=== PATIENT | female | born 1985 | race Asian ===

== ENCOUNTER → 2017-10-03 | Outpatient (CLI) | payer OTHER ==
--- NOTE | 2017-10-03 09:46 | DIAGNOSTIC IMAGING REPORT ---
(LIVER) ABDOMEN LIMITED HISTORY: 31 years-old Female B18.1 Chronic viral hepatitis [id number] COMPARISON: Abdominal ultrasound 07/12/2012 TECHNIQUE: Multiple real-time sonographic images of the abdominal right upper quadrant were obtained assessing grayscale appearance and color flow FINDINGS: The imaged pancreas appears unremarkable. The liver is also within normal limits without focal mass or intrahepatic biliary ductal dilation. The parenchyma appears homogeneous without marginal nodularity or ascites. Liver measures up to 15.4 cm in length. Gallbladder demonstrates no shadowing cholelithiasis, wall thickening or pericholecystic fluid. Common bile duct is normal, 4 mm. Imaged right kidney is also within normal limits without hydronephrosis. IMPRESSION: Unremarkable sonographic appearance of the abdominal right upper quadrant. The above report was generated using voice recognition software. It may contain grammatical, syntax or spelling errors. Electronically signed by: Cristo Travis M.D. 10/03/2017 9:44 AM Dictated Date/Time: 10/03/2017 9:43 AM
--- NOTE | 2017-10-03 09:46 | DIAGNOSTIC IMAGING REPORT ---
THYROID ULTRASONOGRAPHY CLINICAL HISTORY: E04.9 thyroid goiter COMPARISON STUDY: 06/26/2016 FINDINGS: The right lobe measures 49 x 17 x 14 mm. The left lobe measures 55 x 16 x 11 mm. No thyroid masses are visualized. IMPRESSION: Unremarkable thyroid ultrasound. No thyroid nodules identified. Electronically signed by: Odell Yoo M.D. 10/03/2017 9:44 AM Dictated Date/Time: 10/03/2017 9:43 AM
== END | disposition home or self-care (01) ==
LOC: C.ULTR 08:01
PROVIDERS: ATTEND Internal Medicine
DX: B18.1 Chronic viral hepatitis B without delta-agent (principal); E04.9 Nontoxic goiter, unspecified